=== PATIENT | female | born 1955 | race Caucasian/White ===

== ENCOUNTER 2018-09-06 19:00 | Outpatient (CLI) | payer BC | END 2018-09-06 23:59 | disposition home or self-care (01) | LOC: D.MAMMO 19:00 | PROVIDERS: ATTEND Nurse Practitioner Women's Health | DX: R92.8 Other abnormal and inconclusive findings on diagnostic imaging of breast (principal) ==

== ENCOUNTER → 2018-09-18 12:20 | Outpatient (CLI) | payer MEDICAID | END | disposition home or self-care (01) | LOC: D.US 12:20 | PROVIDERS: ATTEND Surgery | DX: N63.12 Unspecified lump in the right breast, upper inner quadrant (principal) ==

== ENCOUNTER 2018-10-10 06:00 | Day surgery (SDC) | payer MEDICAID ==
[~2018-10-10] VITALS: Ht 165.1 cm; Wt 103.0 kg
[~2018-10-10 06:00] MED LIST: ASCORBIC ACID500 MG PO; GALZIN25 MG PO
[2018-10-10 06:41] LABS: BASOPHILS 0.3 % (0-2); EOSINOPHILS 2.7 % (0-7); HEMATOCRIT 39.3 % (36.0-48.0); HEMOGLOBIN 13.3 g/dL (12-16); IMMATURE GRANULOCYTES 0.2 % (0-5); LYMPHOCYTES 24.6 % (15-50); MCH 27.8 pg (26.0-34.0); MCHC 33.8 g/dL (31.0-37.0); MCV 82.2 fL (80.0-100.0); MEAN PLATELET VOLUME 9.8 fL (7.4-10.4); NEUTROPHILS 67.2 % (40-80); PLATELET COUNT 258 10x3/uL (130-400); RBC 4.78 10x6/uL (4.00-5.40); RDW 14.2 % (11.5-14.5); WBC 6.4 10x3/uL (4.8-10.8)
[2018-10-10 06:52] LABS: CALC OSMOLALITY 284 mosm/kg (275-300); CALCIUM 9.3 mg/dL (8.5-10.1); CHLORIDE - SERUM 107 mmol/L (98-107); CREATININE - SERUM 0.6 mg/dL (0.6-1.3); GLUCOSE 111 mg/dL (74-106); POTASSIUM - SERUM 3.9 mmol/L (3.5-5.1); SODIUM 142 mmol/L (136-145); UREA NITROGEN 15 mg/dL (7-18); eGFR NON AFRICAN AMERICAN > 90 mL/min (90-120)
[2018-10-10 07:01] LABS: INR 0.95 (0.85-1.17); PROTIME 12.2 SECONDS (11.6-15.0)
[2018-10-10 07:53] VITALS: BP 152/91; Ht 165.1 cm; Wt 103.0 kg
[2018-10-10] MEDS ORDERED: HYDROCODON-ACE1 EA10 PO (12:26)
--- NOTE | 2018-10-10 13:09 | NUR ---
1304 - CARE TRANSFERRED TO NITESH ENRIQUEZ RN
--- NOTE | 2018-10-10 13:11 | NUR ---
1305 - CARE ASSUMED FROM RACHELL GONZALEZ RN
--- NOTE | 2018-10-10 15:08 | NUR ---
1500 IV REMOVED. NAUSEA RELIEVED. DENIES PAIN, STATED SHE WAS JUST TIRED.
--- NOTE | 2018-10-10 15:41 | NUR ---
DR TOLENTINO CALLED AND ORDER GIVEN TO CALL IN TO PTS rx SOME ZOFRAN PER PTS REQUEST. ORDERS GIVEN AND RX CALLED TO PHARM. IV REMOVED AND PT D/C HOME
--- NOTE | 2018-10-12 09:03 | OP ---
PATIENT NAME: ELEANOR BECK MEDICAL RECORD: [id number] :59 LOCATION:[facility] ADMISSION DATE: SURGEON: MICHAEL VALERIO MD DATE OF OPERATION: 10/10/2018 PREOPERATIVE DIAGNOSES: 1. Papillary carcinoma of the right breast. 2. Hypertension. 3. Obesity with a BMI of 38. POSTOPERATIVE DIAGNOSES: 1. Papillary carcinoma of the right breast. 2. Hypertension. 3. Obesity with a BMI of 38. PROCEDURE: Right lumpectomy with sentinel lymph node biopsy. SURGEON: Michael Valerio MD REPORT OF PROCEDURE: The patient's right breast and axilla was prepped and draped in sterile fashion. Preoperatively, the patient had undergone lymphoscintigraphy of the right breast, which showed uptake in the right axilla. A skin incision was made in the right axilla and electrocautery was used to dissect through the subcutaneous tissues and fascia until we entered the axillary space. A Neoprobe was used to localize 2 lymph nodes which had elevated readings. The highest lymph node reading was 350 and the other one was around 180. These 2 lymph nodes were excised and the lymphatic channels were treated with metallic clips. Once the lymph nodes were removed, we inspected the axilla and could not find any evidence of any high readings with the Neoprobe. We then packed this wound and concentrated on the right breast. A semicircular incision was made on the superior aspect of the nipple areolar complex. Electrocautery was used to dissect through the subcutaneous tissues. We then performed an excision of the large palpable mass in the right breast that was sitting at the 12 o'clock to 1 o'clock position. This mass including a ring of normal benign-appearing breast tissue was removed using electrocautery. Once the mass was completely excised, it measured out to approximately 4-5 cm in greatest diameter. The mass was then marked with sutures and sent off for permanent specimen. We inspected the wound bed and any bleeding sources that were found were treated with either a clamp and tie technique with 3-0 silks or with electrocautery. Once all bleeding was stopped, we then irrigated out the wound with sterile water. The subcutaneous tissues were then reapproximated with interrupted 3-0 Vicryl and the skin incision was closed with running subcutaneous 5-0 Monocryl. A total of 10 mL of 0.25% Marcaine with epinephrine was infused into the 2 wounds and the right axillary incision was then closed in 2-layer fashion with interrupted 3-0 Vicryl and a running 5-0 Monocryl. The wounds were then dressed appropriately. COMPLICATIONS: None. CONDITION: Stable. ANESTHESIA: General endotracheal and local. BLOOD LOSS: 100 mL. OPERATIVE REPORT [id number] ELEANOR BECK TRANSINT:[id number] Voice Confirmation ID: [id number] DOCUMENT ID: [id number] MICHAEL VALERIO MD at 0903 CC: DEON MILLER [id number] DICTATION DATE: 10/10/18 1232 SEWING MACHINE TESTER: 10/10/18 1253 [facility] 10/10/18 [id number] [place] [address]
== END 2018-10-10 15:35 | disposition home or self-care (01) ==
LOC: D.OPS 06:00 → D.PAN 08:00 → D.OPS 15:35
PROVIDERS: Anesthesiology; ATTEND Surgery
DX: C50.211 Malignant neoplasm of upper-inner quadrant of right female breast (principal); D05.81 Other specified type of carcinoma in situ of right breast; I10 Essential (primary) hypertension; E66.9 Obesity, unspecified; Z68.38 Body mass index [BMI] 38.0-38.9, adult; Z01.812 Encounter for preprocedural laboratory examination